=== PATIENT | female | born 1995 | race Caucasian/White ===

== ENCOUNTER 2019-09-27 06:08 | Emergency (ER) | payer OTHER, SELFPAY ==
[2019-09-27 06:28] VITALS: BP 129/83; PULSE 110; RESP 16; TEMP 37.2; O2SAT 97; BMI 20.3
[2019-09-27] MEDS: SODIUM CHLORIDE 0.9% 1,000 ML 1000 ML IV (07:00)
[2019-09-27 07:02] LABS: Add Manual Diff / Slide Review NO; Basophils Absolute Auto 100 /uL (0-100); Basophils Percent Auto 1.1 % (0-2); Eosinophils Absolute Auto 100 /uL (0-450); Eosinophils Percent Auto 2.2 % (2-4); Hematocrit 40.3 % (36-46); Hemoglobin 13.5 g/dL (12.0-16.0); Lymphocytes Absolute Auto 1300 /uL (1100-4500); Lymphocytes Percent Auto 27.9 % (25-40); Mean Corpuscular HGB Conc 33.4 % (30-36); Mean Corpuscular Hemoglobin 27.6 PG (26-34); Mean Corpuscular Volume 82.7 fL (80-100); Monocytes Absolute Auto 400 /uL (0-900); Monocytes Percent Auto 7.9 % (3-14); Neutrophils Absolute Auto 2900 /uL (1500-7000); Neutrophils Percent Auto 60.9 % (50-75); Platelet Count 240 X10^3/uL (150-400); Red Blood Cell Count 4.88 X10^6/uL (4.0-5.2); Red Cell Distribution Width 15.3 % (11.6-14.8); White Blood Cell Count 4.7 X10^3/uL (4.5-11.0)
[2019-09-27 07:21] LABS: Alanine Aminotransferase 16 IU/L (<35); Albumin 4.9 g/dL (3.5-5.0); Albumin Globulin Ratio 1.6 (1.0-2.8); Alkaline Phosphatase 104 U/L (38-126); Aspartate Aminotransferase 26 IU/L (14-36); BUN Creatinine Ratio 12.2 (6-22); Bilirubin Total 0.7 mg/dL (0.2-1.3); Blood Urea Nitrogen 11 mg/dL (7-17); Calcium 9.9 mg/dL (8.4-10.2); Carbon Dioxide 24 mmol/L (22-32); Chloride 106 mmol/L (98-107); Estimated Glomerular Filt Rate > 60.0 mL/min (>60); Glucose 100 mg/dL (70-100); HEMOLYSIS < 15 (0-50); Lipase 202 U/L (23-300); Sodium 141 mmol/L (137-145); Total Protein 7.9 g/dL (6.3-8.2)
[2019-09-27 07:30] VITALS: BP 119/74; PULSE 81; RESP 17; O2SAT 100
[2019-09-27 07:57] VITALS: BP 120/79; PULSE 80; RESP 16; O2SAT 95
--- NOTE | 2019-09-27 08:00 | ED_ITS ---
HPI - Abdominal Pain General Chief Complaint: Abdominal Pain Stated Complaint: stomach pain Time Seen by Provider: 09/27/19 06:10 Source: patient and family Mode of arrival: Ambulatory Limitations: no limitations History of Present Illness HPI narrative: 24-year-old female nonsmoker with history of migraines presents with severe abdominal pain and diarrhea. Patient has had increasing presence of migraines and daily consumption of Excedrin for the past few months. As a consequence, and per her primary care provider she has developed an ulcer which is being treated with omeprazole. About 1 week ago the patient had a surgery on the toe of her right foot and had been on antibiotics until today. Over the night patient developed diarrhea and severe pain. Patient is not dizzy nor weak or lightheaded. She denies any fever or chills. She is otherwise well and free of complaint. MD complaint: abdominal pain Onset (ago): hour(s) Pain Consistency: constant Location: diffuse Severity: moderate Quality: cramping Radiation: none Migration to: no migration Relieving factors: rest Exacerbating factors: nothing and movement Associated symptoms: nausea and diarrhea Related Data Allergies Allergy/AdvReac Type Severity Reaction Status Date / Time No Known Drug Allergies Allergy Verified 09/27/19 06:59 Review of Systems Constitutional Constitutional: Denies chills, Denies fatigue, Denies fever(s), Denies frequent falls, Denies lethargy and Denies weakness Eyes Eyes: Denies change in vision, Denies eye discharge, Denies irritation and Denies loss of vision ENT Ears, Nose, Mouth, and Throat: Denies change in voice, Denies dizziness, Denies neck pain, Denies sore throat and Denies throat swelling Cardiovascular Cardiovascular: Denies chest pain, Denies irregular heart rhythm, Denies lightheadedness, Denies palpitations, Denies dyspnea, Denies dyspnea on exertion and Denies orthopnea Respiratory Respiratory: Denies cough, Denies dyspnea, Denies dyspnea on exertion and Denies wheezing Gastrointestinal Gastrointestinal: Reports abdominal pain, Denies change in bowel habits, Reports diarrhea, Denies nausea and Denies vomiting Genitourinary Genitourinary: Denies hematuria, Denies flank pain, Denies urinary incontinence and Denies urinary urgency Musculoskeletal Musculoskeletal: Denies back pain, Denies muscle weakness, Denies neck pain, Denies numbness and Denies tingling Integumentary/Breasts Skin/Breast: Denies pruritus, Denies erythema, Denies rash and Denies wounds Neurologic Neurologic: Denies behavioral changes, Denies confusion, Denies dizziness, Denies frequent falls, Denies loss of vision, Denies numbness, Denies tingling and Denies weakness Psychiatric Psychiatric: Denies anxiety, Denies behavioral changes, Denies confusion, Denies depression, Denies homicidal ideation and Denies suicidal ideation Endocrine Endocrine: Denies fatigue, Denies flushing and Denies palpitations Hematologic/Lymphatic Hematologic/Lymphatic: Denies easy bruising Allergic/Immunologic Allergic/Immunologic: Denies urticaria, Denies throat swelling and Denies wheezing Patient History Social History Smoking Status: Never smoker Smoking Status: Never smoker Substance Use Type: does not use Exam Narrative Exam Narrative: GENERAL: [24] year old patient appears stated age. Well- nourished, well-developed patient, in mild distress. HEAD: Atraumatic. Normocephalic. EYES: Pupils equal round and reactive. Extraocular motions intact. No scleral icterus. No injection or drainage. ENT: Nose without bleeding, purulent drainage. Throat without erythema, tonsillar hypertrophy or exudate. Airway patent. NECK: Trachea midline. Non tender CARDIOVASCULAR: Regular rate and rhythm without murmurs, gallops, or rubs. RESPIRATORY: Clear to auscultation. Breath sounds equal bilaterally. No wheezes, rales, or rhonchi. GASTROINTESTINAL: Abdomen soft, generalized tenderness, nondistended. EXTREMITIES: No edema or joint tenderness. BACK: Nontender without deformity or crepitance. No flank tenderness. NEURO: AOx3. SKIN: No rash or erythema of visible areas Initial Vital Signs Initial Vital Signs: Vital Signs Temperature 99 F 09/27/19 06:28 Pulse Rate 110 H 09/27/19 06:28 Respiratory Rate 16 09/27/19 06:28 Blood Pressure 129/83 09/27/19 06:28 Pulse Oximetry 97 09/27/19 06:28 Course Orders Ordered: Discontinued Medications Sodium Chloride (Normal Saline 0.9%) 1,000 mls @ 1,000 mls/hr IV BOLUS ONE Stop: 09/27/19 07:38 Last Infusion: 09/27/19 08:09 Dose: 1,000 mls/hr Documented by: Admin: 09/27/19 07:00 Dose: 1,000 mls/hr Documented by: LINDEN Vital Signs Vital signs: Vital Signs - 8 hr 09/27/19 06:28 09/27/19 07:30 09/27/19 07:57 Temperature 99 F Pulse Rate 110 H 81 80 Respiratory Rate 16 17 16 Blood Pressure 129/83 Blood Pressure [Left Arm] 119/74 120/79 Pulse Oximetry 97 100 95 MDM - Abdominal Pain Lab Data Result diagrams: 09/27/19 06:55 09/27/19 06:55 Labs: Lab Results 09/27/19 09/27/19 Range/Units 06:55 06:55 WBC 4.7 (4.5-11.0) X10^3/uL RBC 4.88 (4.0-5.2) X10^6/uL Hgb 13.5 (12.0-16.0) g/dL Hct 40.3 (36-46) % MCV 82.7 (80-100) fL MCH 27.6 (26-34) PG MCHC 33.4 (30-36) % RDW 15.3 H (11.6-14.8) % Plt Count 240 (150-400) X10^3/uL Neut % (Auto) 60.9 (50-75) % Lymph % (Auto) 27.9 (25-40) % [place] % (Auto) 7.9 (3-14) % Eos % (Auto) 2.2 (2-4) % Baso % (Auto) 1.1 (0-2) % Neut # (Auto) 2900 (2413-3127) /uL Lymph # (Auto) 1300 (9570-3361) /uL [place] # (Auto) 400 (0-900) /uL Eos # (Auto) 100 (0-450) /uL Baso # (Auto) 100 (0-100) /uL Sodium 141 (137-145) mmol/L Potassium 4.0 (3.4-5.1) mmol/L Chloride 106 (98-107) mmol/L Carbon Dioxide 24 (22-32) mmol/L BUN 11 (7-17) mg/dL Creatinine 0.90 (0.52-1.04) mg/dL Estimated GFR > 60.0 (>60) mL/min BUN/Creatinine Ratio 12.2 (6-22) Glucose 100 (70-100) mg/dL Calcium 9.9 (8.4-10.2) mg/dL Total Bilirubin 0.7 (0.2-1.3) mg/dL AST 26 (14-36) IU/L ALT 16 (<35) IU/L Alkaline Phosphatase 104 (38-126) U/L Total Protein 7.9 (6.3-8.2) g/dL Albumin 4.9 (3.5-5.0) g/dL Globulin 3.0 (1.7-4.1) g/dL Albumin/Globulin Ratio 1.6 (1.0-2.8) Lipase 202 (23-300) U/L Discharge Plan Departure Patient Disposition: Home Clinical Impression: Abdominal pain Qualifiers: Abdominal location: generalized Qualified Code(s): R10.84 - Generalized abdominal pain Discharge Date/Time: 09/27/19 08:30 Instructions: DI for Abdominal Pain-Adult, DI for Peptic Ulcer Activity Restrictions/Additional Instructions: 1. Drink plenty of fluids with frequent small sips. 2. For the next 24 hours a clear liquid diet is advised. After that please employ a brat diet which would include bananas, rice, apples, toast. 3. Please take medications as directed. 4. Please follow-up with your doctor in the next 1-2 days. Call the office for an appointment. 5. Please return to the emergency Department for any worsening or persistent symptoms, such as increasing pain or fever.
== END 2019-09-27 08:30 | disposition home or self-care (01) ==
PROVIDERS: Emergency Provider Emergency Medicine
DX: R10.84 Generalized abdominal pain (principal)
CPT/HCPCS: 36415; 80053; 83690; 85025; 96360; 99284

== ENCOUNTER 2020-05-23 11:12 | Emergency (ER) | payer OTHER, SELFPAY ==
[2020-05-23 11:15] VITALS: BP 131/79; PULSE 105; RESP 15; TEMP 37.3; O2SAT 99; BMI 20.3
--- NOTE | 2020-05-23 11:44 | ED_ITS ---
HPI - Female Genitourinary <Maria Dolores Mcgovern PA-C - Last Filed: 05/23/20 23:10> General Chief complaint: Urogenital-Female Stated complaint: symptoms of uti Time Seen by Provider: 05/23/20 11:43 Source: patient Mode of arrival: Ambulatory Limitations: no limitations History of Present Illness HPI Narrative: This is a 25-year-old woman with a history of heavy menstrual periods, not on control nonsmoker who presents to the emergency department complaining of urinary symptoms flank pain and abdominal pain. She states that on Wednesday afternoon after going for a hike she started to have some discomfort with peeing and a burning sensation this worsened over the next couple of days d espite drinking lots of fluids and cranberry juice. Last night she began to have worsening abdominal pain and flank pain to the point where she felt she could not lie on her side and she also had diarrhea last night and this morning and vomited this morning. She has had a reduced appetite today. She normally has a bowel movement once every day and never normally has diarrhea. She describes the pain as mostly and achy intense pain that is a 6/10 but at rest in just the right position it is little bit less painful. She says the pain is worse when she is walking around or moving. She did eat and drink earlier today but she had no desire to eat, she currently has no appetite. She used to take Depo for heavy periods but stopped this around October of 2019. She denies any changes in vaginal discharge itching or concern for STIs, sheis currently sexually active with her . She does acknowledge a very small amount of whitish vaginal discharge recently but denies any itching, she is unsure at this discharge is unusual for her. She did have an extremely heavy period with clots and severe menstrual pain 2 weeks ago that ?took me out? she is following up with her primary care regarding this next week. She denies any current nausea or vomiting, chest pain, shortness of breath, back pain or any other symptoms. MD Complaint: dysuria, UTI and other (flank pain, abdominal pain) Onset (ago): day(s) (dysuria for 5 days) Female Urogenital Radiation: L Flank and Periumbilical Severity: moderate Severity scale (1-10): 6 Quality: Aching, Burning and Dull Duration: constant Relieving factors: none and other (positional) Exacerbating factors: movement Urinary symptoms: Dysuria, Flank Pain and Urgency Vaginal discharge: other (none) Related Data Previous Rx's Medication Instructions Recorded ciprofloxacin HCl [Cipro] 500 mg PO BID #14 tab MDD 100 05/23/20 Allergies Allergy/AdvReac Type Severity Reaction Status Date / Time No Known Drug Allergies Allergy Verified 05/23/20 11:20 Review of Systems <Maria Dolores Mcgovern PA-C - Last Filed: 05/23/20 23:10> Review of Systems Narrative: GENERAL: Denies chills, fatigue, malaise, fever, sweats. HEENT: Denies sinus pain, ear pain, sore throat, difficulty swallowing, dizziness. RESPIRATORY: Denies dyspnea, cough, wheezing, hemoptysis, sputum. CARDIOVASCULAR: Denies chest pain, palpitations, orthopnea, edema, GASTROINTESTINAL: Positive for nausea, vomiting this morning, abdominal pain since last night, diarrhea last night and this morning, negative for constipation, melena. : Positive for dysuria, frequency, cloudy urine, negative for incontinence, hematuria, urinary retention. MUSCULOSKELETAL: denies weakness, joint pain, or bony pain SKIN: Denies rash, skin lesions, or other NEUROLOGIC: Denies weakness, headache, numbness, change in speech, confusion, seizures, incoordination. PSYCHIATRIC: No concerning psychosocial issues. 12 point review of systems is negative except for those stated above ROS Unobtainable: All systems reviewed & are unremarkable except as noted in HPI and below Patient History <Maria Dolores Mcgovern PA-C - Last Filed: 05/23/20 23:10> alcohol intake frequency: holidays/special occasions only Substance Use Type: does not use Exam <Maria Dolores Mcgovern PA-C - Last Filed: 05/23/20 23:10> Narrative Exam Narrative: GENERAL: 25 year old patient appears stated age. Well-nourished, well-developed patient, in mild distress. HEAD: Atraumatic. Normocephalic. EYES: Pupils equal round and reactive. Extraocular motions intact. No scleral icterus. No injection or drainage. ENT: Nose without bleeding, purulent drainage. Throat without erythema, tonsillar hypertrophy or exudate. Airway patent. NECK: Trachea midline. Non tender CARDIOVASCULAR: Regular rate and rhythm without murmurs, gallops, or rubs. RESPIRATORY: Clear to auscultation. Breath sounds equal bilaterally. No wheezes, rales, or rhonchi. GASTROINTESTINAL: Abdomen soft, she is mildly tender in the suprapubic area, left upper and left lower quadrants, she has left CVA tenderness, McBurney's and Rovsing's are negative, obturator sign is negative, pain increased with ambulation/movement, nondistended. EXTREMITIES: No edema or joint tenderness. BACK: Nontender without deformity or crepitance. Left CVA tenderness. NEURO: AOx3. SKIN: No rash or erythema of visible areas Initial Vital Signs Initial Vital Signs: Vital Signs Temperature 99.1 F 05/23/20 11:15 Pulse Rate 105 H 05/23/20 11:15 Respiratory Rate 15 05/23/20 11:15 Blood Pressure 131/79 05/23/20 11:15 Pulse Oximetry 99 05/23/20 11:15 <Shan Gamez DO - Last Filed: 05/24/20 07:16> Initial Vital Signs Initial Vital Signs: Vital Signs Temperature 99.1 F 05/23/20 11:15 Pulse Rate 105 H 05/23/20 11:15 Respiratory Rate 15 05/23/20 11:15 Blood Pressure 131/79 05/23/20 11:15 Pulse Oximetry 99 05/23/20 11:15 Scores <JULIETA Navarro Last Filed: 05/23/20 23:10> GCS Roger coma scale eye opening: Spontaneous Roger coma scale verbal response: Orientated Roger coma scale motor response: Obey commands Roger coma scale total score: 15 Course <JULIETA Navarro Last Filed: 05/23/20 23:10> Course Course Narrative: Patient's exam and urine are strongly suggestive of a pyelonephritis, however given that she has periumbilical pain, as well as nausea vomiting this morning, lack of appetite today and multiple episodes of diarrhea in the last 18 hours I am getting some basic labs and an ultrasound to look at her appendix as well as a scan of her kidneys. She is also mildly tachycardic and very low-grade fever. Ultrasound resulted appendix is not visualized, kidneys are normal in appearance, she is noted to have multiple enlarged lymph nodes in the right lowe r quadrant, likely consistent with mesenteric adenitis, no free pelvic fluid. 13:11 Reexamined the patient, she now does have some mild right lower quadrant tenderness and mild suprapubic tenderness, still with left upper and left flank as well as periumbilical tenderness. McBurney's and Rovsing's remain negative. Her pain is not increased with jumping up and down. 13:24 Orders Ordered: Discontinued Medications Ciprofloxacin (Cipro) 500 mg PO NOW ONE Stop: 05/23/20 14:33 Last Admin: 05/23/20 14:38 Dose: 500 mg Documented by: ZZOUTIS Sodium Chloride (Normal Saline 0.9%) 1,000 mls @ 500 mls/hr IV BOLUS ONE Stop: 05/23/20 14:15 Last Infusion: 05/23/20 14:01 Dose: 0 mls/hr Documented by: Admin: 05/23/20 12:43 Dose: 500 mls/hr Documented by: LLUVIA Vital Signs Vital signs: Vital Signs - 8 hr 05/23/20 11:15 Temperature 99.1 F Pulse Rate 105 H Respiratory Rate 15 Blood Pressure 131/79 Pulse Oximetry 99 <Shan Gamez DO - Last Filed: 05/24/20 07:16> Orders Ordered: Discontinued Medications Ciprofloxacin (Cipro) 500 mg PO NOW ONE Stop: 05/23/20 14:33 Last Admin: 05/23/20 14:38 Dose: 500 mg Documented by: ZZOUTIS Sodium Chloride (Normal Saline 0.9%) 1,000 mls @ 500 mls/hr IV BOLUS ONE Stop: 05/23/20 14:15 Last Infusion: 05/23/20 14:01 Dose: 0 mls/hr Documented by: Admin: 05/23/20 12:43 Dose: 500 mls/hr Documented by: LLUVIA Vital Signs Vital signs: Vital Signs - 8 hr 05/23/20 11:15 Temperature 99.1 F Pulse Rate 105 H Respiratory Rate 15 Blood Pressure 131/79 Pulse Oximetry 99 MDM - Female Genitourinary <Maria Dolores Mcgovern PA-C - Last Filed: 05/23/20 23:10> Differential Diagnosis Differential diagnosis: Likely urinary tract infection, cystitis and other (appendicitis, pyelonephritis) Medical Records Attestation: I reviewed the patient's medical records. Lab Data Attestation: I reviewed the patient's lab results. Result diagrams: 05/23/20 12:50 05/23/20 12:50 Labs: Lab Results 05/23/20 05/23/20 05/23/20 Range/Units 11:15 11:15 12:50 WBC 8.8 (4.5-11.0) X10^3/uL RBC 4.31 (4.0-5.2) X10^6/uL Hgb 13.0 (12.0-16.0) g/dL Hct 38.6 (36-46) % MCV 89.6 (80-100) fL MCH 30.3 (26-34) PG MCHC 33.8 (30-36) % RDW 12.7 (11.6-14.8) % Plt Count 268 (150-400) X10^3/uL Neut % (Auto) 77.8 H (50-75) % Lymph % (Auto) 13.7 L (25-40) % [place] % (Auto) 7.6 (3-14) % Eos % (Auto) 0.5 L (2-4) % Baso % (Auto) 0.4 (0-2) % Neut # (Auto) 6800 (2603-6854) /uL Lymph # (Auto) 1200 (4330-2296) /uL [place] # (Auto) 700 (0-900) /uL Eos # (Auto) 0 (0-450) /uL Baso # (Auto) 0 (0-100) /uL Sodium (137-145) mmol/L Potassium (3.4-5.1) mmol/L Chloride (98-107) mmol/L Carbon Dioxide (22-32) mmol/L BUN (7-17) mg/dL Creatinine (0.52-1.04) mg/dL Estimated GFR (>60) mL/min BUN/Creatinine Ratio (6-22) Glucose (70-100) mg/dL Calcium (8.4-10.2) mg/dL Total Bilirubin (0.2-1.3) mg/dL AST (14-36) IU/L ALT (<35) IU/L Alkaline Phosphatase (38-126) U/L Total Protein (6.3-8.2) g/dL Albumin (3.5-5.0) g/dL Globulin (1.7-4.1) g/dL Albumin/Globulin Ratio (1.0-2.8) Lipase (23-300) U/L Urine RBC 1-5/hpf (0-5/HPF) Urine WBC 5-10/hpf H (0-5/HPF) Ur Squamous Epith Cells 0-1 /hpf (0-5/HPF) Urine Bacteria Moderate (10-30) H (None) Ur Culture Indicated? Specimen cultured Urine Test Negative (Negative) 05/23/20 05/23/20 Range/Units 12:50 12:50 WBC (4.5-11.0) X10^3/uL RBC (4.0-5.2) X10^6/uL Hgb (12.0-16.0) g/dL Hct (36-46) % MCV (80-100) fL MCH (26-34) PG MCHC (30-36) % RDW (11.6-14.8) % Plt Count (150-400) X10^3/uL Neut % (Auto) (50-75) % Lymph % (Auto) (25-40) % [place] % (Auto) (3-14) % Eos % (Auto) (2-4) % Baso % (Auto) (0-2) % Neut # (Auto) (8625-1034) /uL Lymph # (Auto) (6734-5248) /uL [place] # (Auto) (0-900) /uL Eos # (Auto) (0-450) /uL Baso # (Auto) (0-100) /uL Sodium 138 (137-145) mmol/L Potassium 4.1 (3.4-5.1) mmol/L Chloride 103 (98-107) mmol/L Carbon Dioxide 28 (22-32) mmol/L BUN 11 (7-17) mg/dL Creatinine 0.65 (0.52-1.04) mg/dL Estimated GFR > 60.0 (>60) mL/min BUN/Creatinine Ratio 16.9 (6-22) Glucose 98 (70-100) mg/dL Calcium 9.3 (8.4-10.2) mg/dL Total Bilirubin 1.4 H (0.2-1.3) mg/dL AST 20 (14-36) IU/L ALT 9 (<35) IU/L Alkaline Phosphatase 109 (38-126) U/L Total Protein 7.6 (6.3-8.2) g/dL Albumin 4.5 (3.5-5.0) g/dL Globulin 3.1 (1.7-4.1) g/dL Albumin/Globulin Ratio 1.5 (1.0-2.8) Lipase 74 (23-300) U/L Urine RBC (0-5/HPF) Urine WBC (0-5/HPF) Ur Squamous Epith Cells (0-5/HPF) Urine Bacteria (None) Ur Culture Indicated? Urine Test (Negative) Point of Care Testing Test Results Negative Urine Dip Bedside Urine Glucose Negative Bedside Urine Bilirubin - Negative Bedside Urine Ketone - Negative Urine Specific Bogard 1.010 Bedside Urine Occult Blood +++ Bedside Urine pH 7.0 Bedside Urine Protein - Negative Bedside Urine Urobilinogen - Negative Bedside Urine Nitrite - Negative Bedside Urine Leukocytes + 70 Esterase Imaging Data US - abdomen: Attestation: I personally reviewed and interpreted this imaging study as follows: Radiologist's Impression: [place] [address] Ultrasound Report Signed Patient: Makenzie Llamas JMR#: [id number] : 1995Acct:[id number] Age/Sex: 25 / FDate of Service: 05/23/20 Loc: ED Accession Number: [id number] Procedure: US renal complete Ordering Provider: Maria Dolores Mcgovern P.A-C PROCEDURE: US RENAL COMPLETE INDICATIONS: FLANK PAIN TECHNIQUE: Real-time scanning was performed of the kidneys and bladder, with image documentation. COMPARISON: None. FINDINGS: Kidneys: Kidneys are normal in size. Right kidney measures 10.6 cm long; left kidney measures 12 cm long. Right renal cortical thickness is 1.5 cm; left renal cortical thickness is 1.6 cm. Renal cortical echotexture is normal. No hydronephrosis or nephrolithiasis. No suspicious solid mass lesions. Bladder: Pre-void bladder volume is one hundred seventy-one mL. Post-void residual is 0 mL. Pre-void images demonstrate no intraluminal masses or stones. On pre-void images, both ureteral jets are noted with color Doppler interrogation. (Of note, ureteral jets may not be detectable in up to 25% of cases due to insufficient differences in specific gravity between ureteral and bladder urine). Miscellaneous: No free pelvic fluid. No appendix (either normal or abnormal) is identified on this study. Several borderline prominent lymph nodes can be seen involving the right lower quadrant, including 2 lymph nodes measuring 1.5 x 0.5 x 0.8 cm and 2 x 0.5 x 0.9 cm, respectively. IMPRESSION: No hydronephrosis is seen. No appendix is seen, either normal or abnormal. Borderline prominent right lower quadrant lymph nodes are seen. Please consider mesenteric adenitis. Dictated by: Mayur Hamilton M.D. on 05/23/2020 at 12:01 Approved by: Mayur Hamilton M.D. on 05/23/2020 at 12:02 [facility] Narrative Medical decision making narrative: This is a well-appearing 25-year-old with no significant medical history except heavy periods who presents to the emergency department complaining of dysuria since Wednesday, (5 days ago), left flank pain and left-sided abdominal pain since yesterday with nausea vomiting and diarrhea in the last 24 hours. Patient's history exam and labs are consistent with a pyelonephritis/UTI. However on exam she did have periumbilical pain and specifically reported discomfort increasing with moving around and walking, concern for appendicitis given this pain possibly atypical for pyelonephritis and appendix was not clearly visualized on ultrasound exam. Last menstrual period was 2 weeks ago. Negative , labs unremarkable except for UA. Discussed the findings with the patient and her mother, I do feel her symptoms can be entirely explained by a you severe UTI and possible pyelonephritis, but I did discuss emergency return precautions and the possibility that she could have an additional abdominal process going on. Patient is in agreement to return to the emergency department immediately with any new or worsening symptoms. I have low suspicion for PID or other acute pelvic process based on history exam, imaging and labs. Emergency return precautions provided, all questions answered. <Shan Gamez, DO - Last Filed: 05/24/20 07:16> Lab Data Labs: Lab Results 05/23/20 05/23/20 05/23/20 Range/Units 11:15 11:15 12:50 WBC 8.8 (4.5-11.0) X10^3/uL RBC 4.31 (4.0-5.2) X10^6/uL Hgb 13.0 (12.0-16.0) g/dL Hct 38.6 (36-46) % MCV 89.6 (80-100) fL MCH 30.3 (26-34) PG MCHC 33.8 (30-36) % RDW 12.7 (11.6-14.8) % Plt Count 268 (150-400) X10^3/uL Neut % (Auto) 77.8 H (50-75) % Lymph % (Auto) 13.7 L (25-40) % [place] % (Auto) 7.6 (3-14) % Eos % (Auto) 0.5 L (2-4) % Baso % (Auto) 0.4 (0-2) % Neut # (Auto) 6800 (9527-8963) /uL Lymph # (Auto) 1200 (8452-0109) /uL [place] # (Auto) 700 (0-900) /uL Eos # (Auto) 0 (0-450) /uL Baso # (Auto) 0 (0-100) /uL Sodium (137-145) mmol/L Potassium (3.4-5.1) mmol/L Chloride (98-107) mmol/L Carbon Dioxide (22-32) mmol/L BUN (7-17) mg/dL Creatinine (0.52-1.04) mg/dL Estimated GFR (>60) mL/min BUN/Creatinine Ratio (6-22) Glucose (70-100) mg/dL Calcium (8.4-10.2) mg/dL Total Bilirubin (0.2-1.3) mg/dL AST (14-36) IU/L ALT (<35) IU/L Alkaline Phosphatase (38-126) U/L Total Protein (6.3-8.2) g/dL Albumin (3.5-5.0) g/dL Globulin (1.7-4.1) g/dL Albumin/Globulin Ratio (1.0-2.8) Lipase (23-300) U/L Urine RBC 1-5/hpf (0-5/HPF) Urine WBC 5-10/hpf H (0-5/HPF) Ur Squamous Epith Cells 0-1 /hpf (0-5/HPF) Urine Bacteria Moderate (10-30) H (None) Ur Culture Indicated? Specimen cultured Urine Test Negative (Negative) 05/23/20 05/23/20 Range/Units 12:50 12:50 WBC (4.5-11.0) X10^3/uL RBC (4.0-5.2) X10^6/uL Hgb (12.0-16.0) g/dL Hct (36-46) % MCV (80-100) fL MCH (26-34) PG MCHC (30-36) % RDW (11.6-14.8) % Plt Count (150-400) X10^3/uL Neut % (Auto) (50-75) % Lymph % (Auto) (25-40) % [place] % (Auto) (3-14) % Eos % (Auto) (2-4) % Baso % (Auto) (0-2) % Neut # (Auto) (9415-5474) /uL Lymph # (Auto) (5749-3950) /uL [place] # (Auto) (0-900) /uL Eos # (Auto) (0-450) /uL Baso # (Auto) (0-100) /uL Sodium 138 (137-145) mmol/L Potassium 4.1 (3.4-5.1) mmol/L Chloride 103 (98-107) mmol/L Carbon Dioxide 28 (22-32) mmol/L BUN 11 (7-17) mg/dL Creatinine 0.65 (0.52-1.04) mg/dL Estimated GFR > 60.0 (>60) mL/min BUN/Creatinine Ratio 16.9 (6-22) Glucose 98 (70-100) mg/dL Calcium 9.3 (8.4-10.2) mg/dL Total Bilirubin 1.4 H (0.2-1.3) mg/dL AST 20 (14-36) IU/L ALT 9 (<35) IU/L Alkaline Phosphatase 109 (38-126) U/L Total Protein 7.6 (6.3-8.2) g/dL Albumin 4.5 (3.5-5.0) g/dL Globulin 3.1 (1.7-4.1) g/dL Albumin/Globulin Ratio 1.5 (1.0-2.8) Lipase 74 (23-300) U/L Urine RBC (0-5/HPF) Urine WBC (0-5/HPF) Ur Squamous Epith Cells (0-5/HPF) Urine Bacteria (None) Ur Culture Indicated? Urine Test (Negative) Point of Care Testing Test Results Negative Urine Dip Bedside Urine Glucose Negative Bedside Urine Bilirubin - Negative Bedside Urine Ketone - Negative Urine Specific Bogard 1.010 Bedside Urine Occult Blood +++ Bedside Urine pH 7.0 Bedside Urine Protein - Negative Bedside Urine Urobilinogen - Negative Bedside Urine Nitrite - Negative Bedside Urine Leukocytes + 70 Esterase Discharge Plan Departure Patient Disposition: Home Clinical Impression: Pyelonephritis UTI (urinary tract infection) Qualifiers: Urinary tract infection type: acute cystitis Hematuria presence: with hematuria Qualified Code(s): N30.01 - Acute cystitis with hematuria Discharge Date/Time: 05/23/20 14:49 Instructions: DI for Kidney Infection, DI for Urinary Tract Infection (UTI) Activity Restrictions/Additional Instructions: Thank you for letting us be part of your care in the emergency department today. I am prescribing antibiotics for you today for urinary tract infection with a kidney infection on the left side. We have given your 1st dose in the emergency department. All of your labs except for your urinalysis returned in the normal range today, we also did an ultrasound to look for your appendix and to look at your kidneys, your kidneys are looking okay however you do definitely have a urinary tract infection and I do believe it is affecting her kidneys based on exam, we were not able to clearly visualize your appendix, you do have some enlarged inflamed lymph nodes in the right lower part of your belly this can happen for various reasons. Because we are not able to clearly visualize your appendix it is very important that you pay close attention to your symptoms at home over the next 48 hours. If you continue to have nausea and vomiting if you are unable to tolerate food if you continue to have diarrhea if you have any worsening abdominal pain, you develop fevers, chills or any other symptoms of concern to you please do not hesitate to come back to the emergency department for further evaluation. While we cannot absolutely rule out an appendicitis at this time I do think it is most likely that you are suffering from a pyelonephritis or kidney infection in addition to your urinary tract infection, this does explain all of your current symptoms. There is no evidence of an emergent or life threatening illness at this time, but follow up with your doctor in 1-2 days is recommended nonetheless to continue to rule out serious underlying causes of your symptoms. Please call the office for an appointment. Please return to the Emergency Department for any worsening or persistent symptoms. Please take medications as directed. Prescriptions: New ciprofloxacin HCl [Cipro] 500 mg tablet 500 mg PO BID MDD 100 Qty: 14 RF: 0 Referrals: Latonia Ramachandran PA-C [Primary Care Provider] - <Shan Gamez, - Last Filed: 05/24/20 07:16> [facility] Dr Gamez Co-Sign Statement: I was annette aguilar for consultation during this patient's emergency department visit. This chart is signed by myself for administrative purposes only. I did not have direct contact with this patient during this visit. They were seen independently by the APC.
[2020-05-23 11:50] LABS: Bacteria Urine Moderate (10-30); Culture Indicated Urine Specimen Cultured; RBC Urine 1-5/HPF (0-5/HPF); Squamous Epithelial Cell Urine 0-1 /HPF (0-5/HPF); WBC Urine 5-10/HPF (0-5/HPF)
--- NOTE | 2020-05-23 12:13 | DI.US.S_ITS ---
PROCEDURE: US RENAL COMPLETE INDICATIONS: FLANK PAIN TECHNIQUE: Real-time scanning was performed of the kidneys and bladder, with image documentation. COMPARISON: None. FINDINGS: Kidneys: Kidneys are normal in size. Right kidney measures 10.6 cm long; left kidney measures 12 cm long. Right renal cortical thickness is 1.5 cm; left renal cortical thickness is 1.6 cm. Renal cortical echotexture is normal. No hydronephrosis or nephrolithiasis. No suspicious solid mass lesions. Bladder: Pre-void bladder volume is one hundred seventy-one mL. Post-void residual is 0 mL. Pre-void images demonstrate no intraluminal masses or stones. On pre-void images, both ureteral jets are noted with color Doppler interrogation. (Of note, ureteral jets may not be detectable in up to 25% of cases due to insufficient differences in specific gravity between ureteral and bladder urine). Miscellaneous: No free pelvic fluid. No appendix (either normal or abnormal) is identified on this study. Several borderline prominent lymph nodes can be seen involving the right lower quadrant, including 2 lymph nodes measuring 1.5 x 0.5 x 0.8 cm and 2 x 0.5 x 0.9 cm, respectively. IMPRESSION: No hydronephrosis is seen. No appendix is seen, either normal or abnormal. Borderline prominent right lower quadrant lymph nodes are seen. Please consider mesenteric adenitis. Dictated by: Mayur Hamilton M.D. on 05/23/2020 at 12:01 Approved by: Mayur Hamilton M.D. on 05/23/2020 at 12:02
[2020-05-23] MEDS: SODIUM CHLORIDE 0.9% 1,000 ML 500 ML IV (12:43)
[2020-05-23 12:58] LABS: Add Manual Diff / Slide Review NO; Basophils Absolute Auto 0 /uL (0-100); Basophils Percent Auto 0.4 % (0-2); Eosinophils Absolute Auto 0 /uL (0-450); Eosinophils Percent Auto 0.5 % (2-4); Hematocrit 38.6 % (36-46); Lymphocytes Absolute Auto 1200 /uL (1100-4500); Lymphocytes Percent Auto 13.7 % (25-40); Mean Corpuscular HGB Conc 33.8 % (30-36); Mean Corpuscular Hemoglobin 30.3 PG (26-34); Mean Corpuscular Volume 89.6 fL (80-100); Monocytes Absolute Auto 700 /uL (0-900); Monocytes Percent Auto 7.6 % (3-14); Neutrophils Absolute Auto 6800 /uL (1500-7000); Neutrophils Percent Auto 77.8 % (50-75); Platelet Count 268 X10^3/uL (150-400); Red Blood Cell Count 4.31 X10^6/uL (4.0-5.2); Red Cell Distribution Width 12.7 % (11.6-14.8); White Blood Cell Count 8.8 X10^3/uL (4.5-11.0)
[2020-05-23 13:11] LABS: Alanine Aminotransferase 9 IU/L (<35); Albumin 4.5 g/dL (3.5-5.0); Albumin Globulin Ratio 1.5 (1.0-2.8); Alkaline Phosphatase 109 U/L (38-126); Aspartate Aminotransferase 20 IU/L (14-36); BUN Creatinine Ratio 16.9 (6-22); Bilirubin Total 1.4 mg/dL (0.2-1.3); Blood Urea Nitrogen 11 mg/dL (7-17); Calcium 9.3 mg/dL (8.4-10.2); Carbon Dioxide 28 mmol/L (22-32); Chloride 103 mmol/L (98-107); Estimated Glomerular Filt Rate > 60.0 mL/min (>60); Globulin 3.1 g/dL (1.7-4.1); Glucose 98 mg/dL (70-100); HEMOLYSIS < 15 (0-50); Potassium 4.1 mmol/L (3.4-5.1); Sodium 138 mmol/L (137-145); Total Protein 7.6 g/dL (6.3-8.2)
[2020-05-23 13:12] LABS: Lipase 74 U/L (23-300)
[2020-05-23 13:25] LABS: Pregnancy Test Urine Negative (Negative)
[2020-05-23 14:00] VITALS: TEMP 36.8
[2020-05-23] MEDS: CIPROFLOXACIN 500 MG TABLET PO (14:38)
== END 2020-05-23 14:49 | disposition home or self-care (01) ==
PROVIDERS: Emergency Medicine; Emergency Provider Student in an Organized Health Care Education/Training Program; PCP Physician Assistant Medical
DX: N12 Tubulo-interstitial nephritis, not specified as acute or chronic (principal); N30.01 Acute cystitis with hematuria; R10.9 Unspecified abdominal pain
CPT/HCPCS: 36415; 76770; 80053; 81003; 81015; 81025; 83690; 85025; 87077; 87086; 87186; 96360; 99284